=== PATIENT | female | born 1990 | race Caucasian/White ===

== ENCOUNTER 2019-05-27 17:58 | Inpatient (IN) | payer BC, SELFPAY ==
[2019-05-27] VITALS (11 sets, daily range): BP systolic 110–131; BP diastolic 66–89; PULSE 88–115; BMI 34.8
[2019-05-27 18:51] LABS: Basophils Absolute Auto 0.1 K/mm3 (0.0-0.1); Basophils Percent Auto 0.4 % (0.2-1.2); Eosinophils Absolute Auto 0.1 K/mm3 (0-0.3); Hematocrit 38.2 % (37.0-47.0); Hemoglobin 13.1 g/dL (12.0-15.0); Immature Granulocyte Percent A 2.8 % (0-0.5); Lymphocytes Absolute Auto 1.67 K/mm3 (0.9-3.2); Lymphocytes Percent Auto 11.5 % (18.3-44.2); Mean Corpuscular HGB Conc 34.3 g/dl (32-36); Mean Corpuscular Hemoglobin 31.6 pg (26-34); Mean Platelet Volume 12.8 fl (7.4-10.4); Monocytes Absolute Auto 0.9 K/mm3 (0.1-0.6); Neutrophils Absolute Auto 11.3 K/mm3 (1.3-6.7); Neutrophils Percent Auto 78.3 % (45.5-73.1); Platelet Count Result 170 k/mm3 (150-375); Red Blood Count 4.15 M/mm3 (4.2-5.4); Red Cell Distribution Width 14.3 % (11.5-14.5); White Blood Count 14.5 K/mm3 (4.5-10.0)
[2019-05-27] MEDS: DINOPROSTONE 10 MG VAG INSERT VAGINAL (19:09)
[2019-05-27] MEDS: AMPICILLIN 2 GM/NS 100 ML 2 GM/100 ML BAG IVPB (23:38)
[2019-05-27] MEDS: LACTATED RINGERS 1,000 ML 125 ML IV CONT (23:39)
[2019-05-28] VITALS (167 sets, daily range): BP systolic 75–138; BP diastolic 38–96; PULSE 67–277; RESP 16–18; TEMP 36.4–37.5; O2SAT 96–100
--- NOTE | 2019-05-28 01:19 | LDADM ---
This patient, SERJIO LANCE, was admitted to Labor/Delivery/Recovery 104 on 05/27/19 at 17:58. Plans for labor, pain management and were discussed with patient. Patient/family oriented to hospital policies and general routines including ID bracelet, bed and alarms, visiting hours, pain management, procedures, bathroom and other care routines, personal items, smoking policy, room service/diet and guest tray routines, infant security routines, and visiting hours. Patient/Family are encouraged to report perceived risks to care and to ask questions if they do not understand what they are told or what they should do. See OBIX for further documentation.
[2019-05-28] MEDS: LACTATED RINGERS 1,000 ML 125 ML IV CONT ×3 (03:41→10:19)
[2019-05-28] MEDS: AMPICILLIN 1 GM/NS 50 ML 1 GM/50 ML BAG IVPB ×4 (03:42→15:51)
--- NOTE | 2019-05-28 06:58 | PM.IMHP ---
H&P: HPI History of Present Illness Chief complaint: Induction of labor Narrative: SERJIO LANCE is a 28 year old female whose last menstrual period was 08/16/2018, whose EDC is 05/23/2019, presents at 40-,5/7 weeks gestation for induction of labor. Her has been uncomplicated. She is positive for group B strep and the 1st doses been administered. Risk and benefits of induction reviewed Review of Systems Review of Systems: All systems reviewed & are unremarkable except as noted in HPI and below PMFSH Family History Family History Other No pertinent family history Social History Social History Smoking status: Never smoker Second hand tobacco smoke exposure: No Substance use: never Gender identity (if verbalized by the patient): Female Spiritual care concerns: No Meds Home Medications and Allergies Home Medications Medication Instructions Recorded Confirmed Type PNV cmb#95-ferrous fumarate-FA 1 tablet PO DAILY 04/25/19 04/25/19 History [] fluticasone furoate-vilanterol 1 inh INHALATION DAILY 04/25/19 04/25/19 History [Breo Ellipta] Allergies Allergy/AdvReac Type Severity Reaction Status Date / Time No Known Allergies Allergy Verified 04/25/19 14:33 Vital Signs Vital Signs - 24 hr 05/27/19 18:33 05/27/19 18:46 05/27/19 19:01 Temperature Pulse Rate 109 H 99 92 Blood Pressure 125/83 125/88 120/81 05/27/19 19:16 05/27/19 19:31 05/27/19 19:46 Temperature Pulse Rate 97 88 114 H Blood Pressure 131/89 122/74 121/81 05/27/19 20:01 05/27/19 20:16 05/27/19 20:31 Temperature Pulse Rate 115 H 94 89 Blood Pressure 110/66 118/80 115/67 05/27/19 20:46 05/27/19 21:01 05/28/19 00:07 Temperature Pulse Rate 89 97 92 Blood Pressure 118/67 120/73 123/86 05/28/19 00:09 05/28/19 00:16 05/28/19 00:31 Temperature 98.2 F Pulse Rate 84 99 Blood Pressure 114/71 116/75 05/28/19 00:46 05/28/19 01:01 05/28/19 01:16 Temperature Pulse Rate 87 87 90 Blood Pressure 115/72 115/70 122/80 05/28/19 01:31 05/28/19 01:46 05/28/19 02:01 Temperature Pulse Rate 84 87 99 Blood Pressure 121/78 109/76 112/85 05/28/19 02:23 05/28/19 02:31 05/28/19 02:46 Temperature Pulse Rate 83 87 100 Blood Pressure 124/75 119/79 119/82 05/28/19 03:01 05/28/19 03:16 05/28/19 03:31 Temperature Pulse Rate 94 83 82 Blood Pressure 116/86 121/79 117/76 05/28/19 03:46 05/28/19 04:01 05/28/19 04:16 Temperature Pulse Rate 87 90 82 Blood Pressure 131/88 119/86 117/75 05/28/19 04:31 05/28/19 05:08 05/28/19 05:16 Temperature Pulse Rate 82 111 H 104 H Blood Pressure 125/73 124/85 113/75 05/28/19 05:31 05/28/19 05:46 05/28/19 05:51 Temperature 97.9 F Pulse Rate 100 91 Blood Pressure 112/64 126/77 05/28/19 06:01 05/28/19 06:16 05/28/19 06:31 Temperature Pulse Rate 98 96 102 H Blood Pressure 118/81 121/77 114/72 05/28/19 06:46 Temperature Pulse Rate 104 H Blood Pressure 112/74 Exam Const: General: no acute distress Eyes: General: appearance normal, both eyes and all related structures Neck: Neck: supple and no JVD Thyroid: thyroid normal Resp: Effort & Inspection: normal respiratory effort Auscultation: clear to auscultation bilaterally Cardio: Rate: regular rate Rhythm: regular rhythm GI: Inspection: normal to inspection (Gravid soft uterus) : General: Yes other (Cervix is 2.5/75%/-2 station. heart tones are reassuring) Bimanual exam- vagina & uterus: other (A ROM with light meconium staining) Skin: General skin exam: no rashes or lesions noted Extrem: General: normal to inspection and no edema Psych: Mental Status: mental status grossly normal Affect: normal affect H&P: Results Labs Labs: Short CBC 05/27/19 Range/Units 18:43 WBC 14.5 H (4.5-10
[2019-05-28 07:52] LABS: Rapid Plasma Reagin Non-Reactive (NonReactive)
--- NOTE | 2019-05-28 09:36 | WPDANESEPPF ---
Anes - Initial Pre Proc Eval Date/Time: 05/28/19 09:36 Surgeon: Ted Vilchis MD Pre Op Diagnosis: Induction of labor Patient Data Age: 28 Gender: F Height: 1.75 m Weight: 107 kg Last Vital Signs Temp 36.8 C 05/28/19 07:03 Pulse 77 05/28/19 09:31 BP 119/66 05/28/19 09:31 Allergies Allergy/AdvReac Type Severity Reaction Status Date / Time No Known Allergies Allergy Verified 04/25/19 14:33 Home Medications Medication Instructions Recorded Confirmed Type PNV cmb#95-ferrous fumarate-FA 1 tablet PO DAILY 04/25/19 04/25/19 History [] fluticasone furoate-vilanterol 1 inh INHALATION DAILY 04/25/19 04/25/19 History [Breo Ellipta] Laboratory Tests 05/27/19 05/27/19 05/27/19 18:43 18:43 18:44 WBC 14.5 K/mm3 H K/mm3 (4.5-10.0) RBC 4.15 M/mm3 L M/mm3 (4.2-5.4) Hgb 13.1 g/dL g/dL (12.0-15.0) Hct 38.2 % % (37.0-47.0) MCV 92.0 fl fl (80-100) MCH 31.6 pg pg (26-34) MCHC 34.3 g/dl g/dl (32-36) RDW 14.3 % % (11.5-14.5) Plt Count 170 k/mm3 k/mm3 (150-375) MPV 12.8 fl H fl (7.4-10.4) Immature Gran % (Auto) 2.8 % H % (0-0.5) Neut % (Auto) 78.3 % H % (45.5-73.1) Lymph % (Auto) 11.5 % L % (18.3-44.2) [place] % (Auto) 6.0 % % (2.6-8.5) Eos % (Auto) 1.0 % % (0-4.4) Baso % (Auto) 0.4 % % (0.2-1.2) Lymph # (Auto) 1.67 K/mm3 K/mm3 (0.9-3.2) [place] # (Auto) 0.9 K/mm3 H K/mm3 (0.1-0.6) Eos # (Auto) 0.1 K/mm3 K/mm3 (0-0.3) Baso # (Auto) 0.1 K/mm3 K/mm3 (0.0-0.1) Abs Immat Gran (auto) 0.40 K/mm3 H K/mm3 (0.00-0.031) Absolute Neuts (auto) 11.3 K/mm3 H K/mm3 (1.3-6.7) Absolute Nucleated RBC 0.0 K/mm3 K/mm3 (0.0-0.012) Nucleated RBC % 0.0 % % (0.0-0.2) RPR Non-reactive (NonReactive) Blood Type O Positive Antibody Screen Negative Patient hx anesthesia problems: none Family hx anesthesia problems: none [facility] Family History Family History Other No pertinent family history Social History Social History Smoking status: Never smoker Second hand tobacco smoke exposure: No Substance use: never Gender identity (if verbalized by the patient): Female Spiritual care concerns: No Anes - Eval Final PreProcedure Day of Procedure 05/28/19 09:36 Patient weight: overweight Heart: regular rate and rhythm Lungs: clear to auscultation and normal air movement Airway: Mallampati scale class II Neurological: alert and oriented Last oral intake: >/= 8 hours ASA classification: II Emergent: no Anesthetic plan: proceed Anesthesia type and monitoring: regional epidural Informed Consent: The patient's anesthetic plan and its attendant risks and benefits were discussed with the patient/family/POA. Questions were solicited and answers provided to the satisfaction of the patient/family/POA.
--- NOTE | 2019-05-28 12:22 | P.PNOB_ITS ---
OB - PN: Subj Subjective Date/time seen: 05/28/19 12:22 cx 4 by rn exam fhts ok iupc/epidural in OB - PN: Obj Data Labs CBC & Chem 7: 05/27/19 18:43 Labs: Laboratory Results - last 24 hr 05/27/19 05/27/19 05/27/19 18:43 18:43 18:44 WBC 14.5 H RBC 4.15 L Hgb 13.1 Hct 38.2 MCV 92.0 MCH 31.6 MCHC 34.3 RDW 14.3 Plt Count 170 MPV 12.8 H Immature Gran % (Auto) 2.8 H Neut % (Auto) 78.3 H Lymph % (Auto) 11.5 L [place] % (Auto) 6.0 Eos % (Auto) 1.0 Baso % (Auto) 0.4 Lymph # (Auto) 1.67 [place] # (Auto) 0.9 H Eos # (Auto) 0.1 Baso # (Auto) 0.1 Abs Immat Gran (auto) 0.40 H Absolute Neuts (auto) 11.3 H Absolute Nucleated RBC 0.0 Nucleated RBC % 0.0 RPR Non-reactive Blood Type O Positive Antibody Screen Negative OB - PN A/P Time Spent With Patient Time: Total time spent is greater than 50% in coordination of care (as documented) at patient's floor/unit and/or counseling patient:
--- NOTE | 2019-05-28 16:29 | P.PNOB_ITS ---
OB - PN: Subj Subjective Date/time seen: 05/28/19 16:29 variables present/iupc in with amnioinfusion little cervical change by rn exam may need section OB - PN: Obj Data Labs CBC & Chem 7: 05/27/19 18:43 Labs: Laboratory Results - last 24 hr 05/27/19 05/27/19 05/27/19 18:43 18:43 18:44 WBC 14.5 H RBC 4.15 L Hgb 13.1 Hct 38.2 MCV 92.0 MCH 31.6 MCHC 34.3 RDW 14.3 Plt Count 170 MPV 12.8 H Immature Gran % (Auto) 2.8 H Neut % (Auto) 78.3 H Lymph % (Auto) 11.5 L [place] % (Auto) 6.0 Eos % (Auto) 1.0 Baso % (Auto) 0.4 Lymph # (Auto) 1.67 [place] # (Auto) 0.9 H Eos # (Auto) 0.1 Baso # (Auto) 0.1 Abs Immat Gran (auto) 0.40 H Absolute Neuts (auto) 11.3 H Absolute Nucleated RBC 0.0 Nucleated RBC % 0.0 RPR Non-reactive Blood Type O Positive Antibody Screen Negative OB - PN A/P Time Spent With Patient Time: Total time spent is greater than 50% in coordination of care (as documented) at patient's floor/unit and/or counseling patient:
--- NOTE | 2019-05-28 17:03 | PM.OBPNVD ---
OB - PN: Subj Subjective Date/time seen: 05/28/19 17:03 Interval history: no change in cx variables present offered section. risks/benefits given OB - PN: Obj Data Labs CBC & Chem 7: 05/27/19 18:43 Labs: Laboratory Results - last 24 hr 05/27/19 05/27/19 05/27/19 18:43 18:43 18:44 WBC 14.5 H RBC 4.15 L Hgb 13.1 Hct 38.2 MCV 92.0 MCH 31.6 MCHC 34.3 RDW 14.3 Plt Count 170 MPV 12.8 H Immature Gran % (Auto) 2.8 H Neut % (Auto) 78.3 H Lymph % (Auto) 11.5 L [place] % (Auto) 6.0 Eos % (Auto) 1.0 Baso % (Auto) 0.4 Lymph # (Auto) 1.67 [place] # (Auto) 0.9 H Eos # (Auto) 0.1 Baso # (Auto) 0.1 Abs Immat Gran (auto) 0.40 H Absolute Neuts (auto) 11.3 H Absolute Nucleated RBC 0.0 Nucleated RBC % 0.0 RPR Non-reactive Blood Type O Positive Antibody Screen Negative OB - PN A/P Time Spent With Patient Time: Total time spent is greater than 50% in coordination of care (as documented) at patient's floor/unit and/or counseling patient:
--- NOTE | 2019-05-28 18:02 | PM.PROC ---
Procedure Note - Detailed Date of procedure: 05/28/19 Pre-op diagnosis: Induction of labor Surgeon: MD Kang Valderrama postop diagnosis: intolerance of labor Procedure: Primary low-transverse section Anesthesia: Epidural EBL: 625 Findings: 8 lb 11 oz male Apgars 5 and 9 at 1 and 5 minutes respectively Complications: None Description procedure: Patient was prepped draped in the normal sterile fashion and placed in the supine position. Under excellent epidural anesthesia the abdomen was entered in Pfannenstiel fashion progressive layers to the fascia. The fascia was incised upward outward fashion bilaterally. The underlying muscles were sharply dissected by sharp dissection. Parietal peritoneum elevated Karmen clamps and carried superiorly then inferiorly to the dome of the bladder. A bladder blade was placed. A bladder flap was formed. The bladder blade returned. A low-transverse incision made and the head delivered in the YUE position. Nuchal cord was checked and loose x1. It was relieved around occiput. Anterior posterior shoulder delivered spontaneously. Cord was clamped x2 and cut. passed off the table given Apgars of 5 [id number] and 9 [id number]. Placenta was delivered intact manually. Uterus was inspected and noted to be without membranes or debris. The lower uterine segment was closed with continuous running 0 Vicryl from lateral edge to lateral edge. This was followed by 2nd imbricating running locking 0 Vicryl from lateral edge to lateral edge. Hemostasis was assured. The ovaries and tubes appeared within normal limits. The uterus returned to the abdomen. The uterine incision inspected 1 last time noted be hemostatic. Sponges were accounted for. The abdomen closed with the with the fascia using 0 Vicryl from lateral edge to midline bilaterally. Irrigation undertaken subcutaneous layer skin closed with 4 O Monocryl and glue. All sponge, needle, instrument counts were correct. There were no immediate complications
[2019-05-28] MEDS: MEPERIDINE HCL INJ 50 MG/ML AMPUL 25 MG IV PUSH (18:20)
--- NOTE | 2019-05-28 19:26 | SUR.PHASEI ---
1830 Given a total of 25mg Demerol for shaking. Report to Lauri Sandoval RN.
--- NOTE | 2019-05-28 20:57 | OBPPTRN ---
Patient transferred to post room #292 via stretcher with infant in crib. Support person present. Oriented to unit, room, information board, rooming in, admission packet and security measures. Patient verbalizes understanding.
--- NOTE | 2019-05-28 21:56 | SUR.PHASEI ---
All charting in Phase I from 1830 to 2099 done by Barb Sandoval RN
[2019-05-29] VITALS (7 sets, daily range): BP systolic 102–124; BP diastolic 56–78; PULSE 80–101; RESP 17–18; TEMP 36.4–37.1; O2SAT 97–100
[2019-05-29] MEDS: DEXTROSE 5%/0.45% SOD CHL 1,000 ML 125 ML IV CONT (03:17)
[2019-05-29] MEDS: IBUPROFEN 600 MG TABLET PO ×3 (05:10→22:36)
[2019-05-29 05:38] LABS: Basophils Percent Auto 0.2 % (0.2-1.2); Eosinophils Absolute Auto 0.1 K/mm3 (0-0.3); Eosinophils Percent Auto 0.4 % (0-4.4); Hematocrit 34.1 % (37.0-47.0); Hemoglobin 11.4 g/dL (12.0-15.0); Immature Granulocyte Absolute 0.16 K/mm3 (0.00-0.031); Immature Granulocyte Percent A 0.9 % (0-0.5); Lymphocytes Absolute Auto 1.05 K/mm3 (0.9-3.2); Lymphocytes Percent Auto 6.2 % (18.3-44.2); Mean Corpuscular HGB Conc 33.4 g/dl (32-36); Mean Corpuscular Hemoglobin 31.6 pg (26-34); Mean Corpuscular Volume 94.5 fl (80-100); Mean Platelet Volume 12.5 fl (7.4-10.4); Monocytes Absolute Auto 1.1 K/mm3 (0.1-0.6); Monocytes Percent Auto 6.6 % (2.6-8.5); Neutrophils Absolute Auto 14.6 K/mm3 (1.3-6.7); Neutrophils Percent Auto 85.7 % (45.5-73.1); Platelet Count Result 120 k/mm3 (150-375); Red Blood Count 3.61 M/mm3 (4.2-5.4); Red Cell Distribution Width 14.4 % (11.5-14.5)
--- NOTE | 2019-05-29 06:53 | P.PNOB_ITS ---
OB - PN: Subj Subjective Date/time seen: 05/29/19 06:53 Patient comments: no complaints and pain well controlled baby status: doing well and nursing well OB - PN: Obj Data Labs CBC & Chem 7: 05/29/19 05:06 Labs: Laboratory Results - last 24 hr 05/27/19 05/29/19 18:43 05:06 WBC 17.0 H RBC 3.61 L Hgb 11.4 L Hct 34.1 L MCV 94.5 MCH 31.6 MCHC 33.4 RDW 14.4 Plt Count 120 L MPV 12.5 H Immature Gran % (Auto) 0.9 H Neut % (Auto) 85.7 H Lymph % (Auto) 6.2 L [place] % (Auto) 6.6 Eos % (Auto) 0.4 Baso % (Auto) 0.2 Lymph # (Auto) 1.05 [place] # (Auto) 1.1 H Eos # (Auto) 0.1 Baso # (Auto) 0.0 Abs Immat Gran (auto) 0.16 H Absolute Neuts (auto) 14.6 H Absolute Nucleated RBC 0.0 Nucleated RBC % 0.0 RPR Non-reactive OB - PN A/P Plan day: 1 Plan: routine care Time Spent With Patient Time: Total time spent is greater than 50% in coordination of care (as documented) at patient's floor/unit and/or counseling patient: Time with patient: less than 15 minutes Review of Systems Review of Systems: All systems reviewed & are unremarkable except as noted in HPI and below Exam Const: General: no acute distress Eyes: General: appearance normal, both eyes and all related structures Neck: Neck: supple and no JVD Thyroid: thyroid normal Resp: Effort & Inspection: normal respiratory effort Auscultation: clear to auscultation bilaterally Cardio: Rate: regular rate Rhythm: regular rhythm GI: Inspection: non-distended GI Palp: Yes Soft to palpation, No Tenderness to palpation present (GI) and No Guarding due to palpation present (GI) Auscultation: normal bowel sounds : General: Yes bladder normal to palpation External Female Exam: normal external appearance Speculum Exam - Vagina: normal vaginal discharge and No vaginal bleeding Speculum Exam - Cervix: nontender Bimanual exam- vagina & uterus: bladder normal to palpation and No Cervical tenderness present OB/ex ternal & speculum: No vaginal bleeding Skin: General skin exam: no rashes or lesions noted Extrem: General: normal to inspection and no edema Psych: Mental Status: mental status grossly normal Affect: normal affect
[2019-05-29] MEDS: SIMETHICONE 80 MG TAB.CHEW PO ×3 (08:01→15:56)
[2019-05-29] MEDS: DOCUSATE SODIUM 100 MG CAPSULE PO ×2 (08:02→15:56)
--- NOTE | 2019-05-29 12:48 | WPDANLDPN2 ---
Anes-Prog Note L&D Date/Time: 05/29/19 12:48 Comfortable throughout: section Neuraxial method: epidural Epidural/Spinal procedure site: clean & non-tender Neuro status: Neuro function grossly intact. Cardiovascular status: normal Respiratory status: normal Airway patency: baseline Mental status: baseline Post-Op hydration status: normal Vital Signs: Last Vital Signs Temp 36.4 C 05/29/19 11:15 Pulse 92 05/29/19 11:15 Resp 18 05/29/19 11:15 BP 102/56 L 05/29/19 11:15 Pulse Ox 97 05/29/19 11:15 I/O: Intake & Output 05/28/19 05/29/19 05/29/19 23:59 07:59 15:59 Intake Total 100 1000 600 Output Total 347 700 950 Balance -247 300 -350 Post-procedural complaints: none Patient feedback: Patient satisfied with anesthetic care.
--- NOTE | 2019-05-29 12:48 | WPDANLDNPN2 ---
Anes-Prog Note L&D-Neuraxial Date/Time: 05/29/19 12:48 Neuraxial medications: epidural PF morphine Opiod-related complaints: none Patient feedback: Patient satisfied with post-operative pain management.
[2019-05-30 07:50] VITALS: BP 123/73; PULSE 96; RESP 16; TEMP 36.8; O2SAT 100
--- NOTE | 2019-05-30 09:39 | PM.OBPNVD ---
OB - PN: Subj Subjective Date/time seen: 05/30/19 09:39 Interval history: no change in cx variables present offered section. risks/benefits given Patient comments: no complaints and pain well controlled baby status: doing well and bottle feeding well OB - PN: Obj Data Labs CBC & Chem 7: 05/29/19 05:06 OB - PN A/P Plan day: 2 Plan: routine care, discharge home and follow up 6 weeks (4 weeks) Time Spent With Patient Time: Total time spent is greater than 50% in coordination of care (as documented) at patient's floor/unit and/or counseling patient: Time with patient: less than 15 minutes Review of Systems Review of Systems: All systems reviewed & are unremarkable except as noted in HPI and below Exam Const: General: no acute distress Eyes: General: appearance normal, both eyes and all related structures Neck: Neck: supple and no JVD Thyroid: thyroid normal Resp: Effort & Inspection: normal respiratory effort Auscultation: clear to auscultation bilaterally Cardio: Rate: regular rate Rhythm: regular rhythm GI: Inspection: non-distended GI Palp: Yes Soft to palpation, No Tenderness to palpation present (GI) and No Guarding due to palpation present (GI) Auscultation: normal bowel sounds : General: Yes bladder normal to palpation External Female Exam: normal external appearance Speculum Exam - Vagina: normal vaginal discharge and No vaginal bleeding Speculum Exam - Cervix: nontender Bimanual exam- vagina & uterus: bladder normal to palpation and No Cervical tenderness present OB/external & speculum: No vaginal bleeding Skin: General skin exam: no rashes or lesions noted Extrem: General: normal to inspection and no edema Psych: Mental Status: mental status grossly normal Affect: normal affect
[2019-05-30] MEDS: DOCUSATE SODIUM 100 MG CAPSULE PO (10:05)
[2019-05-30] MEDS: IBUPROFEN 600 MG TABLET PO ×2 (10:06→17:35)
[2019-05-30] MEDS: MEASLES,MUMPS,RUBELLA VACCINE 0.5 ML VIAL SUB-Q (10:11)
--- NOTE | 2019-05-30 20:27 | PC.NURSE ---
Reassessment for 1735 dose of [place] should not have been done. Pt was D/C'd
[2019-06-02 11:00] VITALS: BP 123/81; PULSE 87; RESP 20; TEMP 36.8
--- NOTE | 2019-06-02 12:56 | PM.DS ---
DS: Summary Hospital Course Reason for hospitalization: postdates Time Spent with Patient Time attestation: Total time spent providing and/or coordinating discharge services: Exam Const: General: no acute distress Eyes: General: appearance normal, both eyes and all related structures Neck: Neck: supple and no JVD Thyroid: thyroid normal Resp: Effort & Inspection: normal respiratory effort Auscultation: clear to auscultation bilaterally Cardio: Rate: regular rate Rhythm: regular rhythm GI: Inspection: non-distended GI Palp: Yes Soft to palpation, No Tenderness to palpation present (GI) and No Guarding due to palpation present (GI) Auscultation: normal bowel sounds : General: Yes bladder normal to palpation External Female Exam: normal external appearance Speculum Exam - Vagina: normal vaginal discharge and No vaginal bleeding Speculum Exam - Cervix: nontender Bimanual exam- vagina & uterus: bladder normal to palpation and No Cervical tenderness present OB/external & speculum: No vaginal bleeding Skin: General skin exam: no rashes or lesions noted Extrem: General: normal to inspection and no edema Psych: Mental Status: mental status grossly normal Affect: normal affect Discharge Plan Discharge Attending physician on discharge: Ted Vilchis Consulting providers: Vadim Pastrana Discharging Clinician: Ted Vilchis Patient Disposition: Home, Self-Care Activity: may shower, no straining, may drive after 2 weeks and pelvic rest Diet: heart healthy Wound Care Instructions: follow printed instructions Discharge Instructions: Education: Mom and Baby Guide Given to: Patient Follow-Up: Call your delivering provider's office for an appointment to be seen in: 1 week for an incision check. Mom and baby should come to the [facility] for the follow-up appointment. Appointment Date/Time: Sunday06/02/2019 at 11:00 am Call [phone] if you are unable to keep your appointment time. BREAST CARE: 1. Wear a snug supportive bra. 2. For engorgement discomfort: Bottle Feeding: A. May apply ice packs ABDOMINAL INCISION: (if applicable) 1. Allow incision to air dry 2. Do NOT use lotions for powders on your incision 3. When showering, allow soap and water to run over the incision, but do not wash incision PERINEAL CARE: 1. Until bleeding stops, use your osiris bottle after urinating 2. Change your pad frequently throughout the day 3. No tub baths until seen by your physician - You may shower ACTIVITY: 1. Rest as much as possible. 2. Do not exercise or lift anything heavier than your baby (such as laundry or other children.) 3. Avoid stairs or driving as much as possible. 4. Do not put anything into the vagina. No douching, tampons, or sexual activity until seen by physician. NOTIFY PHYSICIAN IF YOU HAVE ANY QUESTIONS OR IF ANY OF THE FOLLOWING SYMPTOMS OCCUR: 1. If your incision becomes red, swollen, or more painful than what you have experienced in the hospital. 2. If your vaginal bleeding becomes foul smelling. 3. If your vaginal bleeding becomes more heavy than a period or if your bleeding changes from pink to bright red. However, you may pass an occasional walnut-sized clot once or twice for the first week . 4. If you experience a sharp, shooting pain in you calves. 5. If you discover a hard, reddened area on your breast or if you experience flu-like symptoms. DIET: 1. Eat regular, well-balanced meals. 2. Drink plenty of fluids daily. If , drink to thirst. Follow-up/Referrals: Ted Vilchis MD [Physician] - Discharge Medications: New hydrocodone-acetaminophen [Kathleen] 5-325 mg tablet 1 tablet PO Q4H PRN (Reason: pain) Qty: 30 RF: 0 Continued PNV cmb#95-ferrous fumarate-FA [] 28 mg iron- 800 mcg Tablet 1 tablet PO DAILY RF: 0 Breo Ellipta 100-25 mcg/dose Bl
--- NOTE | 2019-06-04 06:58 | PM.DS ---
DS: Diagnosis Admitting Diagnosis Admitting Diagnosis: Encounter for supervision of normal , unspecified, third trimester term DS: Summary Time Spent with Patient Time attestation: Total time spent providing and/or coordinating discharge services: Exam Const: General: no acute distress Eyes: General: appearance normal, both eyes and all related structures Neck: Neck: supple and no JVD Thyroid: thyroid normal Resp: Effort & Inspection: normal respiratory effort Auscultation: clear to auscultation bilaterally Cardio: Rate: regular rate Rhythm: regular rhythm GI: Inspection: non-distended GI Palp: Yes Soft to palpation, No Tenderness to palpation present (GI) and No Guarding due to palpation present (GI) Auscultation: normal bowel sounds : General: Yes bladder normal to palpation External Female Exam: normal external appearance Speculum Exam - Vagina: normal vaginal discharge and No vaginal bleeding Speculum Exam - Cervix: nontender Bimanual exam- vagina & uterus: bladder normal to palpation and No Cervical tenderness present OB/external & speculum: No vaginal bleeding Skin: General skin exam: no rashes or lesions noted Extrem: General: normal to inspection and no edema Psych: Mental Status: mental status grossly normal Affect: normal affect Discharge Plan Discharge Attending physician on discharge: Ted Vilchis Consulting providers: Vadim Pastrana Discharging Clinician: Ted Vilchis Patient Disposition: Home, Self-Care Activity: may shower, no straining, may drive after 2 weeks and pelvic rest Diet: heart healthy Wound Care Instructions: follow printed instructions Discharge Instructions: Education: Mom and Baby Guide Given to: Patient Follow-Up: Call your delivering provider's office for an appointment to be seen in: 1 week for an incision check. Mom and baby should come to the [facility] for the follow-up appointment. Appointment Date/Time: Sunday06/02/2019 at 11:00 am Call [phone] if you are unable to keep your appointment time. BREAST CARE: 1. Wear a snug supportive bra. 2. For engorgement discomfort: Bottle Feeding: A. May apply ice packs ABDOMINAL INCISION: (if applicable) 1. Allow incision to air dry 2. Do NOT use lotions for powders on your incision 3. When showering, allow soap and water to run over the incision, but do not wash incision PERINEAL CARE: 1. Until bleeding stops, use your osiris bottle after urinating 2. Change your pad frequently throughout the day 3. No tub baths until seen by your physician - You may shower ACTIVITY: 1. Rest as much as possible. 2. Do not exercise or lift anything heavier than your baby (such as laundry or other children.) 3. Avoid stairs or driving as much as possible. 4. Do not put anything into the vagina. No douching, tampons, or sexual activity until seen by physician. NOTIFY PHYSICIAN IF YOU HAVE ANY QUESTIONS OR IF ANY OF THE FOLLOWING SYMPTOMS OCCUR: 1. If your incision becomes red, swollen, or more painful than what you have experienced in the hospital. 2. If your vaginal bleeding becomes foul smelling. 3. If your vaginal bleeding becomes more heavy than a period or if your bleeding changes from pink to bright red. However, you may pass an occasional walnut-sized clot once or twice for the first week . 4. If you experience a sharp, shooting pain in you calves. 5. If you discover a hard, reddened area on your breast or if you experience flu-like symptoms. DIET: 1. Eat regular, well-balanced meals. 2. Drink plenty of fluids daily. If , drink to thirst. Follow-up/Referrals: Ted Vilchis MD [Physician] - Discharge Medications: New hydrocodone-acetaminophen [[place]] 5-325 mg tablet 1 tablet PO Q4H PRN (Reason: pain) Qty: 30 RF: 0 Continued PNV cmb#95-ferrous fumarate-FA [] 28 m
== END 2019-05-30 17:42 | disposition home or self-care (01) | DRG 788 ==
LOC: ANHLDR 05-28 12:10 → ANHOB2 05-28 20:59
PROVIDERS: Admitting Provider Obstetrics & Gynecology; Visit Provider Obstetrics & Gynecology
PROC: 10D00Z1 Extraction of Products of Conception, Low, Open Approach (ICD-10-PCS; CPT 59514; principal; 2019-05-28 17:15)
DX: O99.824 Streptococcus B carrier state complicating childbirth (principal); Z37.0 Single live birth; Z3A.40 40 weeks gestation of pregnancy; O69.81X0 Labor and delivery complicated by cord around neck, without compression, not applicable or unspecified; O36.8330 Maternal care for abnormalities of the fetal heart rate or rhythm, third trimester, not applicable or unspecified; P96.83 Meconium staining; O48.0 Post-term pregnancy
CPT/HCPCS: 36415; 85025; 86592; 86850; 86900; 86901; 90710; A9270; J0131; J0290; J2175; J2274; J2370; J2405; J2590; J2795; J3010; J7120

== ENCOUNTER 2023-10-18 12:37 | Outpatient (CLI) | payer SELFPAY ==
[2023-10-18 13:11] LABS: Hematocrit 36.1 % (37.0-47.0); Hemoglobin 12.3 g/dL (12.0-15.0); Mean Corpuscular HGB Conc 34.1 g/dl (32-36); Mean Corpuscular Hemoglobin 31.6 pg (26-34); Mean Corpuscular Volume 92.8 fl (80-100); Mean Platelet Volume 12.6 fl (7.4-10.4); Platelet Count Result 145 k/mm3 (150-375); Red Blood Count 3.89 M/mm3 (4.2-5.4); Red Cell Distribution Width 14.6 % (11.5-14.5); White Blood Count 10.7 K/mm3 (4.5-10.0)
[2023-10-18 14:10] LABS: HIV 1/2 Ab P24 Ag Result Negative (Negative)
[2023-10-18 18:23] LABS: Rapid Plasma Reagin Non-Reactive (NonReactive)
== END 2023-10-18 12:38 | disposition home or self-care (01) ==
PROVIDERS: Visit Provider Obstetrics & Gynecology
DX: Z34.93 Encounter for supervision of normal pregnancy, unspecified, third trimester (principal); Z3A.00 Weeks of gestation of pregnancy not specified
CPT/HCPCS: 36415; 85027; 86592; 86703; 86850; 86900; 86901; G0432

== ENCOUNTER 2023-10-19 10:02 | Inpatient (IN) | payer BC, SELFPAY ==
[2023-10-19] VITALS (65 sets, daily range): BP systolic 102–135; BP diastolic 51–96; PULSE 66–117; RESP 12–20; TEMP 36.1–37; O2SAT 96–100; BMI 34.4
[2023-10-19] MEDS: ACETAMINOPHEN 500 MG TABLET 1000 MG PO (10:28)
--- NOTE | 2023-10-19 10:31 | LDADM ---
This patient, Tracey Brennan, was admitted to Labor/Delivery/Recovery 119 on 10/19/23 at 10:02. Plans for pain management and were discussed with patient. Patient/family oriented to hospital policies and general routines including ID bracelet, bed and alarms, visiting hours, pain management, procedures, bathroom and other care routines, personal items, smoking policy, room service/diet and guest tray routines, infant security routines, and visiting hours. Patient/Family are encouraged to report perceived risks to care and to ask questions if they do not understand what they are told or what they should do. See OBIX for further documentation.
--- NOTE | 2023-10-19 11:34 | PM.IMHP ---
H&P: HPI History of Present Illness Date/Time: 10/19/23 11:34 Chief Complaint: Here for c section Narrative: 33 y/o at 39 1/7 weeks here for repeat . GBS pos. Has asthma. otherwise uncomplicated. Review of Systems Review of Systems: All systems reviewed & are unremarkable except as noted in HPI and below PMFSH Past Medical History Medical History (Updated 10/19/23 @ 11:37 by Stanley Johnson MD) History of asthma Surgical History Surgical History (Updated 10/19/23 @ 11:37 by Stanley Johnson MD) History of delivery History of D&C Family History Family History Other No pertinent family history Social History Social History Smoking status: Never smoker Second hand tobacco smoke exposure: No Substance use: never Do You Feel Safe in your Home?: Yes Lack of Transportation: No Lack of Food: Never True Current Housing: I Do Not Have Housing Concerned About Future Housing: No Difficulty Paying Gas/Electric Bills: No Difficulty Paying for Meds: No Currently Unemployed: No Education: Bachelor's Degree Difficulty w/ Childcare or Family Care: No Gender identity (if verbalized by the patient): Female Spiritual care concerns: No Meds Home Medications and Allergies Home Medications Medication Instructions Recorded Confirmed Type fluticasone furoate 100 1 inh inhalation DAILY 04/25/19 10/19/23 History mcg-vilanterol 25 mcg/dose inhalation powder (Breo Ellipta) vit no.95-ferrous 1 tablet PO DAILY 04/25/19 10/19/23 History fumarate 28 mg-folic acid 800 mcg tablet () albuterol sulfate 90 mcg/actuation 1 inh inhalation QID PRN Wheezing 10/17/23 10/19/23 History aerosol inhaler Allergies Allergy/AdvReac Type Severity Reaction Status Date / Time No Known Allergies Allergy Verified 10/19/23 10:57 Vital Signs Vital Signs - 24 hr 10/19/23 10:19 10/19/23 10:24 10/19/23 10:29 Pulse Rate 101 H Blood Pressure 135/75 Pulse Oximetry 100 100 100 Oxygen Delivery 10/19/23 10:30 10/19/23 10:34 10/19/23 10:39 Pulse Rate 107 H Blood Pressure 132/96 H Pulse Oximetry 100 100 Oxygen Delivery 10/19/23 10:47 10/19/23 11:00 10/19/23 10:59 Pulse Rate 101 H 95 Blood Pressure 131/73 117/78 Pulse Oximetry Oxygen Delivery Room Air Exam Const: Orientation/consciousness: patient oriented x3 Other: Well-developed, well-nourished female in no acute distress. Neck: Thyroid: thyroid normal Lymphatic: no lymphadenopathy noted (in neck, axilla or inguinal nodes) Resp: Effort & Inspection: normal respiratory effort Auscultation: clear to auscultation bilaterally Cardio: Rate: regular rate Rhythm: regular rhythm Heart sounds: S1 normal heart sound present and S2 normal heart sound present GI: Other: ABD: Soft, nontender, nondistended, gravid. FHR auscultated. No guarding or rebound tenderness. No hepatosplenomegaly. : General: Yes no CVA tenderness Other: Cervix closed / thick Back/Spine/Pelvis: Back: no CVA tenderness Skin: General skin exam: normal color and no rashes or lesions noted Neuro: General: patient oriented x3 Extrem: Other: Extremities: nontender with no edema Psych: Mental Status: mental status grossly normal Affect: normal affect Assessment and Plan Assessment and plan (1) History of delivery: Code(s): Z98.891 - History of uterine scar from previous surgery Status: Acute Assessment and Plan: A: IUP at 39 1/7 weeks, prior , desiring repeat. GBS pos. P: Offered repeat . She understands risks of surgery to include risks of anesthesia, risks of pain, infection, bleeding, blood products, thromboembolic phenomena and damage to adjacent structures such as bowel, bladde
[2023-10-19] MEDS: LACTATED RINGERS 1,000 ML 125 ML IV CONT ×3 (11:42→12:30)
--- NOTE | 2023-10-19 11:42 | WPDANESEPPF ---
Anes - Initial Pre Proc Eval Procedure: Operation Date: 10/19/23 12:00 Proposed Procedures p Repeat Section - Stanley Johnson MD Date/Time: 10/19/23 11:42 Surgeon: Stanley Johnson MD Pre Op Diagnosis: Repeat Patient Data Age: 33 Gender: F Height: 1.75 m Weight: 106 kg Last Vital Signs Pulse 95 10/19/23 11:00 BP 117/78 10/19/23 11:00 Pulse Ox 100 10/19/23 10:39 O2 Del Method Room Air 10/19/23 10:59 Allergies Allergy/AdvReac Type Severity Reaction Status Date / Time No Known Allergies Allergy Verified 10/19/23 10:57 Home Medications Medication Instructions Recorded Confirmed Type fluticasone furoate 100 1 inh inhalation DAILY 04/25/19 10/19/23 History mcg-vilanterol 25 mcg/dose inhalation powder (Breo Ellipta) vit no.95-ferrous 1 tablet PO DAILY 04/25/19 10/19/23 History fumarate 28 mg-folic acid 800 mcg tablet () albuterol sulfate 90 mcg/actuation 1 inh inhalation QID PRN Wheezing 10/17/23 10/19/23 History aerosol inhaler Patient hx anesthesia problems: none Family hx anesthesia problems: none Results Review: All pre-operative results and documents have been reviewed as part of the pre-operative evaluation. [facility] Past Medical History Medical History History of asthma Surgical History Surgical History History of delivery History of D&C Family History Family History Other No pertinent family history Social History Social History Smoking status: Never smoker Second hand tobacco smoke exposure: No Substance use: never Do You Feel Safe in your Home?: Yes Lack of Transportation: No Lack of Food: Never True Current Housing: I Do Not Have Housing Concerned About Future Housing: No Difficulty Paying Gas/Electric Bills: No Difficulty Paying for Meds: No Currently Unemployed: No Education: Bachelor's Degree Difficulty w/ Childcare or Family Care: No Gender identity (if verbalized by the patient): Female Spiritual care concerns: No Anes - Eval Final PreProcedure Day of Procedure 10/19/23 11:42 Patient weight: obese Heart: regular rate and rhythm Lungs: clear to auscultation Airway: Mallampati scale class II Neurological: alert and oriented Last oral intake: >/= 8 hours ASA classification: II Emergent: no Anesthetic plan: proceed Anesthesia type and monitoring: regional spinal and standard monitoring Results Review: All pre-operative results and documents have been reviewed as part of the pre-operative evaluation. Informed Consent: The patient's anesthetic plan and its attendant risks and benefits were discussed with the patient/family/POA. Questions were solicited and answers provided to the satisfaction of the patient/family/POA.
[2023-10-19] MEDS: ONDANSETRON INJ 4 MG/2 ML VIAL IV PUSH (11:44)
--- NOTE | 2023-10-19 11:44 | WPDHPUPDATE1 ---
History and Physical Update Update Date/Time: 10/19/23 11:44 History and Physical has been reviewed, including an updated exam of the patient. There are NO changes in the patient's condition. Risks, benefits, and alternatives have been discussed and questions answered. Patient agrees to proceed with procedure.
[2023-10-19] MEDS: FAMOTIDINE 20 MG/2 ML VIAL IV PUSH (11:46)
[2023-10-19] MEDS: ceFAZolin 2 GM/D5W 50 ML 2 GM/50 ML BAG IVPB (12:01)
--- NOTE | 2023-10-19 12:58 | P.PCNOB_ITS ---
OB - Delivery Note Procedure Delivery date: 10/19/23 Pre-op diagnosis: Positive Group B Strep (GBS) and Previous Delivery Post-op Diagnosis: Same (1) IUP at 39 1/7 weeks; 2) Prior , desires repeat; 3) GBS pos) Induction method: None Delivery monitor: External FHT and External Uterine Procedure Performed: Repeat Surgeon: Stanley Johnson MD Anesthesia type: Spinal Description of Procedure/Findings: Findings: Normal-appearing uterus, tubes and ovaries. Techniques: The patient was taken to the operating room where she was prepared and draped in the usual sterile fashion in dorsal supine position with a leftward tilt. She received cefazolin preoperatively. Spinal anesthesia was found to be adequate. A Pfannenstiel skin incision was made along the previous scar line and was carried through to the underlying layer of the fascia. The fascia was incised in the midline and the incision was extended laterally. The fascia was dissected free of the underlying rectus muscles. The rectus muscles were in the midline. The peritoneum was identified, tented up and entered sharply. The peritoneal incision was extended superiorly and inferiorly with good visualization of the bladder. The bladder blade was placed. The vesicouterine peritoneum was identified, tented up and entered sharply. The incision was extended laterally and the bladder flap was developed. The bladder blade was replaced. The uterus was then incised sharply in a transverse fashion along the lower uterine segment. The incision was extended laterally. The infant's head was delivered atraumatically to the sterile field, followed by the body. The nose and mouth were bulb suctioned. After a delay, the cord was clamped and cut. The was handed off the field. Cord blood was collected. The placenta was removed manually and was passed off the field. The uterus was exteriorized and cleared of all clots and debris. The uterine incision was reapproximated using 0 Monocryl in a running, locked fashion. Excellent hemostasis resulted as did excellent reapproximation of the normal anatomy. The uterus was returned the abdomen. The pelvis was irrigated copiously with warmed normal saline. Rigorous hemostasis was assured. The fascial layer was reapproximated using 0 Vicryl in a running fashion. The skin was closed with a running, subcuticular stitch of 4 0 Vicryl. Dermaflex was applied externally. Sponge, lap, needle and instrument counts were correct. The patient was taken to the recovery room in stable condition. The infant went to the nursery in stable condition. I was present and scrubbed the entire procedure. Specimen: Yes (cord blood) Estimated Blood Loss: 595 Drains: Yes (cesar) Packing: No Pathology: Yes (cord blood) Complications: None Condition: Stable Disposition: PACU [place] Baby Date of : 10/19/23 Time of : 12:26 Weeks of gestation at delivery: 39 Infant gender: Female Weight (pounds): 9 Weight (ounces): 0 presentation: vertex Placenta delivery description: Manual Removal and Normal Configuration Cord Vessel Description: 3 Vessels and Delayed Cord Clamping score one minute: 8 score five minutes: 9
--- NOTE | 2023-10-19 13:00 | PM.OBDSVD ---
DS: Admitting Diagnosis Discharge Date 10/21/23 <Rut Dennison MD - Last Filed: 10/21/23 08:21> Admitting Diagnosis IUP at 39 1/7 weeks Prior , desires repeat GBS colonization <Stanley Johnson MD - Last Filed: 10/28/23 09:21> DS: Discharge Diagnosis Discharge Diagnosis (1) delivery delivered: Code(s): O82 - Encounter for delivery without indication <Stanley Johnson MD - Last Filed: 10/28/23 09:21> Status: Acute <Stanley Johnson MD - Last Filed: 10/28/23 09:21> (2) GBS (group B Streptococcus carrier), +RV culture, currently : Code(s): O99.820 - Streptococcus B carrier state complicating <Stanley Johnson MD - Last Filed: 10/28/23 09:21> Status: Acute <Stanley Johnson MD - Last Filed: 10/28/23 09:21> OB - DS: Summary OB Procedures : NST <Stanley Johnson MD - Last Filed: 10/28/23 09:21> OB Procedures Intrapartum: <Stanley Johnson MD - Last Filed: 10/28/23 09:21> OB Procedures: : None <Stanley Johnson MD - Last Filed: 10/28/23 09:21> Peripartum Data Procedures: Procedures Operation Date: 10/19/23 12:00 <No data on this case meets the specified criteria> <Stanley Johnson MD - Last Filed: 10/28/23 09:21> Time Spent with Patient Time attestation: Total time spent providing and/or coordinating discharge services: <Stanley Johnson MD - Last Filed: 10/28/23 09:21> Discharge Plan Discharge Attending physician on discharge: Stanley Johnson <Stanley Johnson MD - Last Filed: 10/28/23 09:21> Stanley Johnson <Rut Dennison MD - Last Filed: 10/21/23 08:21> Consulting providers: Rut Dennison; Yaima Parker; Ted Lindsey <Stanley Johnson MD - Last Filed: 10/28/23 09:21> Discharging Clinician: Stanley Johnson <Stanley Johnson MD - Last Filed: 10/28/23 09:21> Stanley Johnson <Rut Dennison MD - Last Filed: 10/21/23 08:21> Patient Disposition: Home, Self-Care <Stanley Johnson MD - Last Filed: 10/28/23 09:21> Activity: may shower, may drive after 2 weeks and follow weight bearing status <Stanley Johnson MD - Last Filed: 10/28/23 09:21> may shower, may drive after 2 weeks and follow weight bearing status <Rut Dennison MD - Last Filed: 10/21/23 08:21> Diet: regular <Stanley Johnson MD - Last Filed: 10/28/23 09:21> regular <Rut Dennison MD - Last Filed: 10/21/23 08:21> Wound Care Instructions: incision open to air <Stanley Johnson MD - Last Filed: 10/28/23 09:21> incision open to air <Rut Dennison MD - Last Filed: 10/21/23 08:21> Discharge Instructions: Education: Mom and Baby Guide Given to: Mother Follow-Up: Call your delivering provider's office for an appointment to be seen in: 4 Weeks Mom and baby should come to the [place] for the follow-up appointment. Appointment Date/Time: Sunday, October 22, 2023 at 2:30 p.m. What to expect at your follow-up visit: Blood Pressure Check Physical Assessment Call [phone] if you are unable to keep your appointment time. BREAST CARE: * Wear a snug supportive bra. * For engorgement discomfort: Bottle Feeding: * May apply ice packs ABDOMINAL INCISION: (if applicable) * Allow incision to air dry * Do NOT use lotions for powders on your incision * When showering, allow soap and water to run over the incision, but do not wash incision EPISIOTOMY/PERINEAL CARE: * Change your pad frequently throughout the day * You may take sitz baths several times a day (fill your bathtub with warm water and soak for 20 minutes.) Do NOT bathe in the water * No tub baths until seen by your physician - You may shower ACTIVITY: * Rest as much as possible. * Do not exercise o
[2023-10-19] MEDS: OXYTOCIN 30 UNITS/NS 500 ML 30 UNITS/500 ML BAG 125 UNITS IV CONT (13:31)
--- NOTE | 2023-10-19 13:43 | PC.NURSE ---
heart tones obtained in OR after spinal placement. FHT 130 at 1208. Proceeded to prep patient in a routine fashion.
--- NOTE | 2023-10-19 15:30 | PC.NURSE ---
Patient brought to floor by BEL Styles. Stephani performed patients vitals and assessment at this time.
--- NOTE | 2023-10-19 15:30 | OBPPTRN ---
Patient transferred to post room #280 via stretcher. Support person present. Oriented to unit, room, information board, rooming in, admission packet and security measures. Patient verbalizes understanding.
[2023-10-19] MEDS: LIDOCAINE 5% PATCH 1 PATCH TRANSDERM (15:39)
[2023-10-19] MEDS: DOCUSATE SODIUM 100 MG CAPSULE PO (16:47)
[2023-10-19] MEDS: SIMETHICONE 80 MG TAB.CHEW PO (16:47)
[2023-10-19] MEDS: KETOROLAC 15 MG/ML VIAL (*BKC) IV PUSH ×2 (16:47→23:08)
[2023-10-19] MEDS: ACETAMINOPHEN 325 MG TABLET 650 MG PO ×2 (16:47→23:08)
[2023-10-19] MEDS: DEXTROSE 5%/0.45% SOD CHL 1,000 ML 125 ML IV CONT (17:36)
[2023-10-20] MEDS: ACETAMINOPHEN 325 MG TABLET 650 MG PO ×3 (05:40→17:36)
[2023-10-20] MEDS: KETOROLAC 15 MG/ML VIAL (*BKC) IV PUSH ×2 (05:40→11:49)
[2023-10-20 06:06] LABS: Basophils Percent Auto 0.3 % (0.2-1.2); Eosinophils Absolute Auto 0.1 K/mm3 (0-0.3); Eosinophils Percent Auto 0.9 % (0-4.4); Hematocrit 29.6 % (37.0-47.0); Hemoglobin 9.9 g/dL (12.0-15.0); Immature Granulocyte Absolute 0.13 K/mm3 (0.00-0.031); Immature Granulocyte Percent A 1.1 % (0-0.5); Lymphocytes Absolute Auto 1.34 K/mm3 (0.9-3.2); Lymphocytes Percent Auto 11.4 % (18.3-44.2); Mean Corpuscular HGB Conc 33.4 g/dl (32-36); Mean Corpuscular Hemoglobin 31.9 pg (26-34); Mean Corpuscular Volume 95.5 fl (80-100); Mean Platelet Volume 12.5 fl (7.4-10.4); Monocytes Absolute Auto 0.9 K/mm3 (0.1-0.6); Monocytes Percent Auto 7.6 % (2.6-8.5); Neutrophils Absolute Auto 9.2 K/mm3 (1.3-6.7); Neutrophils Percent Auto 78.7 % (45.5-73.1); Platelet Count Result 104 k/mm3 (150-375); Red Cell Distribution Width 14.8 % (11.5-14.5); White Blood Count 11.7 K/mm3 (4.5-10.0)
[2023-10-20 08:00] VITALS: BP 104/67; PULSE 82; RESP 16; TEMP 37; O2SAT 99
[2023-10-20] MEDS: DOCUSATE SODIUM 100 MG CAPSULE PO ×2 (08:04→17:36)
[2023-10-20] MEDS: MULTIVIT/MIN/PREN/FOL AC/IRON TABLET 1 TAB PO (08:04)
[2023-10-20] MEDS: POLYSACCHARIDE IRON COMPLEX 150 MG CAPSULE PO ×2 (08:04→17:36)
[2023-10-20] MEDS: SIMETHICONE 80 MG TAB.CHEW PO ×3 (08:05→17:36)
--- NOTE | 2023-10-20 10:06 | PM.OBPNVD ---
OB - PN: Subj Subjective Date/time seen: 10/20/23 10:06 Patient comments: no complaints and pain well controlled baby status: doing well OB - PN: Obj Data Labs 10/20/23 05:38 Labs: Laboratory Results - last 24 hr 10/20/23 05:38 WBC 11.7 H RBC 3.10 L Hgb 9.9 L Hct 29.6 L MCV 95.5 MCH 31.9 MCHC 33.4 RDW 14.8 H Plt Count 104 L MPV 12.5 H Immature Gran % (Auto) 1.1 H Neut % (Auto) 78.7 H Lymph % (Auto) 11.4 L [place] % (Auto) 7.6 Eos % (Auto) 0.9 Baso % (Auto) 0.3 Lymph # (Auto) 1.34 [place] # (Auto) 0.9 H Eos # (Auto) 0.1 Baso # (Auto) 0.0 Abs Immat Gran (auto) 0.13 H Absolute Neuts (auto) 9.2 H Absolute Nucleated RBC 0.000 Nucleated RBC % 0.0 OB - PN A/P Plan day: 1 Plan: routine care Time Spent With Patient Time: Total time spent is greater than 50% in coordination of care (as documented) at patient's floor/unit and/or counseling patient: Exam Narrative: inc c/d/i : Bimanual exam- vagina & uterus: other (Uterus firm, nt @U)
--- NOTE | 2023-10-20 14:49 | WPDANLDPN2 ---
Anes-Prog Note L&D Date/Time: 10/20/23 14:49 Comfortable throughout: section Neuraxial method: spinal Epidural/Spinal procedure site: clean & non-tender Neuro status: Neuro function grossly intact. Cardiovascular status: normal Respiratory status: normal Airway patency: baseline Mental status: baseline Post-Op hydration status: normal Vital Signs: Last Vital Signs Temp 37.0 C 10/20/23 08:00 Pulse 82 10/20/23 08:00 Resp 16 10/20/23 08:00 BP 104/67 10/20/23 08:00 Pulse Ox 99 10/20/23 08:00 O2 Del Method Room Air 10/20/23 08:00 Pain score (VAS): 2/10 I/O: Intake & Output 10/19/23 10/20/23 10/20/23 23:59 07:59 15:59 Intake Total 500 860 550 Output Total 1325 375 700 Balance -825 485 -150 Post-procedural complaints: none Patient feedback: Patient satisfied with anesthetic care.
--- NOTE | 2023-10-20 14:49 | WPDANLDNPN2 ---
Anes-Prog Note L&D-Neuraxial Date/Time: 10/20/23 14:49 Neuraxial medications: intrathecal PF morphine Opiod-related complaints: none Patient feedback: Patient satisfied with post-operative pain management.
[2023-10-20] MEDS: IBUPROFEN 600 MG TABLET PO (17:36)
[2023-10-20] MEDS: LIDOCAINE 5% PATCH 1 PATCH TRANSDERM (17:36)
[2023-10-20 20:12] VITALS: BP 117/77; PULSE 79; RESP 18; TEMP 36.7; O2SAT 99
[2023-10-21] MEDS: IBUPROFEN 600 MG TABLET PO ×2 (01:30→09:37)
[2023-10-21] MEDS: ACETAMINOPHEN 325 MG TABLET 650 MG PO ×2 (01:30→09:37)
[2023-10-21 07:37] VITALS: BP 122/92; PULSE 72; RESP 18; TEMP 36.6; O2SAT 99
[2023-10-21 08:00] VITALS: PULSE 72; RESP 18; O2SAT 99
--- NOTE | 2023-10-21 08:18 | PM.OBPNVD ---
OB - PN: Subj Subjective Date/time seen: 10/21/23 08:18 Patient comments: no complaints and pain well controlled baby status: doing well OB - PN: Obj Data Labs 10/20/23 05:38 OB - PN A/P Plan day: 2 Plan: routine care and discharge home Time Spent With Patient Time: Total time spent is greater than 50% in coordination of care (as documented) at patient's floor/unit and/or counseling patient: Exam Narrative: inc c/d/i : Bimanual exam- vagina & uterus: other (Uterus firm, nt @U)
--- NOTE | 2023-10-21 08:54 | PC.NURSE ---
Patient was given the opportunity to view the discharge video Mother & Baby Care, The First Two Weeks and to ask questions. Patient declined viewing the video and has been given the mother/baby guide for home reference.
[2023-10-21] MEDS: POLYSACCHARIDE IRON COMPLEX 150 MG CAPSULE PO (09:37)
[2023-10-21] MEDS: SIMETHICONE 80 MG TAB.CHEW PO (09:37)
[2023-10-21] MEDS: DOCUSATE SODIUM 100 MG CAPSULE PO (09:37)
[2023-10-22 14:46] VITALS: BP 130/83; PULSE 80; RESP 18; TEMP 36.7; O2SAT 99
== END 2023-10-21 10:25 | disposition home or self-care (01) | DRG 788 ==
LOC: ANHLDR 13:02 → ANHOB2 15:24
PROVIDERS: Admitting Provider Obstetrics & Gynecology; Visit Provider Obstetrics & Gynecology
PROC: 10D00Z1 Extraction of Products of Conception, Low, Open Approach (ICD-10-PCS; CPT 59514; principal; 2023-10-19 12:00)
DX: O34.219 Maternal care for unspecified type scar from previous cesarean delivery (principal); O99.824 Streptococcus B carrier state complicating childbirth; O99.52 Diseases of the respiratory system complicating childbirth; J45.909 Unspecified asthma, uncomplicated; Z3A.39 39 weeks gestation of pregnancy; Z37.0 Single live birth
CPT/HCPCS: 36415; 85025; A9270; J0690; J1885; J2274; J2405; J2590; J7120

== ENCOUNTER 2023-11-20 11:40 | Outpatient (CLI) | payer BC, SELFPAY ==
--- NOTE | ~2023-11-20 | CT_ITS ---
EXAMINATION: CT abdomen w con DATE: 11/20/2023 12:01 INDICATION: Ventral hernia TECHNIQUE: Computed tomography (CT) of the abdomen was performed with 100 mL Omnipaque-350 intravenou s contrast. Automated exposure control and iterative reconstruction technique were employed. The dose -length product was 727.04 mGy-cm. COMPARISON: None FINDINGS: Lung bases are clear. Heart size is normal. No pericardial or pleural effusion. Liver, gallbladder, s pleen, pancreas, left adrenal gland and left kidney are normal. 1.1 cm low-attenuation renal lesion a butting the right adrenal gland and the upper pole the right kidney which could represent either an e xophytic renal cyst or an adrenal adenoma. There is a crescentic region of soft tissue density with c alcifications extending along the posterior medial right perinephric space along the upper pole the r ight kidney. Bowels including the appendix are normal. Small fat-containing umbilical hernia. Cesarea n section scar along the anterior lower uterine segment and extending transversely across anterior pe lvic wall. 12 follicle in the right ovary. And small amount of likely physiologic free fluid in the c ul-de-sac. No pathologically enlarged abdominal or pelvic lymphadenopathy. Mild lumbar levocurvature. Moderate bilateral sacroiliac osteoarthritis. IMPRESSION: 1. Small fat-containing umbilical hernia and postoperative change of prior section is at the caudal margin of the field of imaging. 2. Indeterminate thin crescentic soft tissue density along the right perinephric space, unclear wheth er enhancing soft tissue or hypoattenuation fluid such as perinephric hematoma. Would recommend follo w-up pre and postcontrast MRI or CT for further evaluation. Reviewed, dictated and finalized at location A. IMPRESSION: 1. Small fat-containing umbilical hernia and postoperative change of prior cesa rean section is at the caudal margin of the field of imaging. 2. Indeterminate thin crescentic soft tissue density along the right perinephri c space, unclear whether enhancing soft tissue or hypoattenuation fluid such as perinephric hematoma. Would recommend follow-up pre and postcontrast MRI or CT for further evaluation.
== END 2023-11-20 11:41 ==
LOC: MICIMG 11:41
PROVIDERS: PCP Obstetrics & Gynecology; Visit Provider Obstetrics & Gynecology
DX: K43.9 Ventral hernia without obstruction or gangrene (principal); K42.9 Umbilical hernia without obstruction or gangrene
CPT/HCPCS: 74160; Q9967

== ENCOUNTER 2023-12-10 09:50 | Outpatient (CLI) | payer BC, SELFPAY ==
--- NOTE | ~2023-12-10 | MR_ITS ---
EXAMINATION: MR abdomen wo/w con DATE: 12/10/2023 10:53 INDICATION: Ventral hernia without obstruction or gangrene. Right perinephric mass. TECHNIQUE: Magnetic resonance imaging (MRI) of the abdomen was performed without and with 20 mL Multi [place] Jay intravenous contrast. COMPARISON: CT abdomen 11/20/2023 FINDINGS: The liver, gallbladder, spleen, pancreas, and left adrenal gland are normal. There is an 11 mm mass i n right adrenal gland containing fat, consistent with an adenoma. The kidneys are normal. In the righ t perinephric space, there is a peripherally enhancing 2.9 [address] demonstrated peripheral calcifications in the mass. There are no dilated loops of bowel. There are no pathologically enlarged lymph nodes. IMPRESSION: 1. 2.9 x 0.7 cm right perinephric mass, most likely a subacute hematoma. Reviewed, dictated and finalized at location A.
== END 2023-12-10 09:51 | disposition home or self-care (01) ==
LOC: MICIMG 09:51
PROVIDERS: PCP Obstetrics & Gynecology; Visit Provider Obstetrics & Gynecology
DX: K43.9 Ventral hernia without obstruction or gangrene (principal)
CPT/HCPCS: 74183; A9577